=== PATIENT | male | born 1980 | race Caucasian/White ===

== ENCOUNTER 2025-02-24 09:51 | Outpatient (CLI) | payer OTHER, SELFPAY ==
--- OUTSIDE RECORDS SUMMARY | 2025-02-24 11:19 | XMS_ITS | Clinical Summary ---
Author Organization [facility] Address [address] [place] [id number] Care Team Providers Care Bill Adjuster Name Role Phone Christopher Son MD Primary Care Provider Allergies Active Allergy Reactions Criticality Noted Date Comments Methotrexate Swelling Medium 08/08/2023 Pertussis Vaccine,Fluid Anaphylaxis High 08/08/2023 Medications aspirin 81 mg enteric coated tablet Take 1 tablet (81 mg total) by mouth daily 30 tablet 4 Active clopidogreL (PLAVIX) 75 mg tablet Take 1 tablet (75 mg total) by mouth daily 30 tablet 4 Active ezetimibe (ZETIA) 10 mg tablet Take 1 tablet (10 mg total) by mouth daily 30 tablet 4 Active rosuvastatin (CRESTOR) 40 mg tablet Take 1 tablet (40 mg total) by mouth nightly 30 tablet 4 Active albuterol 2.5 mg /3 mL (0.083 %) nebulizer solution Inhale as needed 3 Active cholecalciferol 400 unit capsule Take 1 tablet/capsule (400 Units total) by mouth daily Active nitroglycerin (NITROSTAT) 0.[address] 1 tablet (0.4 mg total) under the tongue every 5 (five) minutes as needed 3 Active risankizumab-rza a 150 mg/mL syringe Inject 150 mg under the skin Active acetaminophen (TYLENOL) 500 mg tablet Take 2 tablets (1,000 mg total) by mouth daily Active carvediloL (COREG) 25 mg tablet Take 1 tablet (25 mg total) by mouth 2 (two) times a day with meals 180 tablet 3 4 Active spironolactone (ALDACTONE) 25 mg tablet Take 1 tablet (25 mg total) by mouth daily 30 tablet 11 4 02/26/20 25 Active isosorbide mononitrate ER (IMDUR) 30 mg 24 hr tablet Take 1 tablet (30 mg total) by mouth daily Take 1 30 mg tablet and 1 60 mg tablet daily for a total of 90 mg daily 90 tablet 3 5 Active isosorbide mononitrate ER (IMDUR) 60 mg 24 hr tablet Take 1 tablet (60 mg total) by mouth daily Take 1 30 mg tablet and 1 60 mg tablet daily for a total of 90 mg daily 90 tablet 3 5 Active pregabalin (LYRICA) 150 mg capsule TAKE 1 CAPSULE TWICE DAILY (CHANGE FROM 75MG CAPSULES TO 150MG) 5 Active diclofenac sodium (VOLTAREN) 1 % gel Apply 2 g topically 4 (four) times a day 100 g [address] (CYMBALTA) 30 mg capsule Take 1 capsule (30 mg total) by mouth daily 30 capsule 11 5 08/05/19 26 Active ranolazine ER (RANEXA) 500 mg 12 hr tablet Take 1 tablet (500 mg total) by mouth 2 (two) times a day 180 tablet 3 5 Active doxycycline monohydrate (MONODOX) 100 mg capsule Take 1 capsule (100 mg total) by mouth 2 (two) times a day 5 Active HYDROcodone-acet aminophen (NORCO) 5-325 mg per tablet Take 1 tablet by mouth 2 (two) times a day as needed 5 Active LORazepam (ATIVAN) 0.5 mg tablet Take 1 tablet (0.5 mg total) by mouth daily as needed for anxiety 5 Active tirzepatide, weight loss, (Zepbound) 2.5 mg/0.5 mL pen injectorIndicati ons:Weight Loss Management for Obese Patient (BMI >= 30) Inject 0.5 mL (2.5 mg total) under the skin every 7 days 1 mL 11 5 Active Active Problems Problem Noted Date Diagnosed Date Facet arthritis of lumbar region 08/04/2024 Psoriasis 11/06/2023 Psoriatic arthritis 10/23/2023 HTN (hypertension) 10/12/2023 Assessment & Plan (10/12/2023 10:48 AM CDT): Controlled, we made no changes today. Continue coreg 12.5 mg BID, Norvasc 5 mg daily, and imdur 90 mg daily. Coronary artery disease 08/09/2023 Assessment & Plan (11/20/2023 1:28 PM CDT): Concern for worsening chest pressure due to worsening blood pressure. - Increase Coreg 25mg BID - Continue Amlodipine 5mg daily, Ranexa 500mg BID, Imdur 90mg daily Assessment & Plan (10/12/2023 10:47 AM CDT): CAD Sp CABG x 3 with PCI to LAD x3 and LCX x1 with residual chest pressure. Improved, atypical sounds MSK. SP repeat LHC with patent IVAN to LAD, SVG to PL branch, PDA is patent and stents in the LM into the LAD-September 2023. Continue Ranexa 500 mg BID, continue Norvasc 5 mg daily, DAPT for 6 months- minimum, continue coreg 12.5 mg BID, imdur 90 mg daily and NTG PRN, zetia 10 mg daily and crestor 40 mg daily, along with Zetia 10 mg daily. Continue cardiac rehab, Dr. Horn in [facility] as scheduled. Social work consult. Assessment & Plan (08/20/2023 1:18 PM CDT): CAD Sp CABG x 3 with PCI to LAD x3 and LCX x1 with residual chest pressure. Improved. Increase ranexa to 500 mg BID, continue Norvasc 5 mg daily, DAPT for 6 months-minimum, change metoprolol to 75 mg xl at night for fatigue, imdur 30 mg daily and NTG PRN, zetia 10 mg daily and crestor 40 mg daily. Starting cardiac rehab, Dr. Horn in 3 months. Angina at rest 08/08/2023 Hypercholesterolemia 03/22/2023 Encounters Date Type Department Care Team Description 12/17/2024 Telephone [facility] Medicine Cardiology [address] [facility] 8th [place] [address] [place] [address] Dalia Holm 12/12/2024 Telephone [facility] [address] [facility] 8th [place] [address] [place] [address] Toro Horn MD 11/27/2024 Telephone [facility] Card[facility] [address] [facility] 8th [place] [address] [place] [address] Toro Horn MD Prior Auth (zepbound) 11/26/2024 Results Follow-Up [facility] [address] [place] [address] Toro Horn MD Lipid panel, Hemoglobin A1c, Basic metabolic panel, eGFR 11/25/2024 11:45 AM CDT Lab [facility] [address] [place] [address] Angina at rest; Coronary artery disease involving [place] heart, unspecified vessel or lesion type, unspecified whether angina present; Hypercholesterolemi a 11/25/2024 11:30 AM CDT Lab [facility] [address] [place] [address] Angina at rest; Coronary artery disease involving [place] heart, unspecified vessel or lesion type, unspecified whether angina present; Resistant hypertension; Hypercholesterolemi a 11/25/2024 10:00 AM CDT Office Visit [facility] Cardiology [address] [place] [address] [address] [place] [phone] Toro Horn MD Angina at rest (Primary Dx); Coronary artery disease involving [place] heart, unspecified vessel or lesion type, unspecified whether angina present; Resistant hypertension; Hypercholesterolemi a 11/25/2024 Telephone [facility] [address] [place] [address] [address] [place] [phone] Toro Horn MD from Last 3 Months Surgical History Surgery Date Site/Laterality Comments CORONARY ARTERY BYPASS GRAFT CARDIAC CATHETERIZATION OTHER SURGICAL HISTORY 05/12/2020 Right groin lesion excision CARDIAC STENT PLACEMENT 08/09/2023 PCI to LAD and LCx Medical History Medical History Date Comments Coronary artery disease CABG '23 Hypertension Hyperlipidemia ELIEZER on CPAP Low back pain Family History Medical History Relation Name Comments Diabetes Brother Other Father Other Mother Heart attack Mother's Brother Other Sister Relation Name Status Comments Brother Father Mother Alive Mother's Brother Sister Alive Social History Tobacco Use Types Packs/Day Years Used Date Smoking Tobacco: Former Cigarettes Passive Smoke Exposure: Never Smokeless Tobacco: Never Tobacco Cessation:Counseling Given: Not Answered AUDIT-C Answer Date Recorded Q1: How often do you have a drink containing alc ohol? Monthly or less 08/14/2024 Q2: How many drinks containi ng alcohol do you have on a typical day when you are drinking? 1 or 2 08/14/2024 Q3: How often do you have si x or more drinks on one occasion? Never 08/14/2024 Hunger Vital Sign Answer Date Recorded Within the past 12 months, y ou worried that your food would run out before you got the money to buy more. Never true 08/15/19 25 Within the past 12 months, t he food you bought just didn't last and you didn't have money to get more. Never true 08/14/2024 Personal Safety Answer Date Recorded Have you ever been in or are you currently in a harmful physical or emotional relationship or is someone making you feel afraid or unsafe? Denies 09/26/2023 Sex and Gender Information Value Date Recorded Sex Assigned at Not on file Legal Sex Male 2:34 PM CDT Gender Identity Not on file Sexual Orientation Not on file Obstetrics History Last Filed Vital Signs Vital Sign Reading Time Taken Comments Blood Pressure 108/70 11/25/2024 10:33 AM CDT Pulse 54 11/25/2024 10:33 AM CDT Temperature 36.5 C (97.7 F) 08/04/2024 2:24 PM CDT Respiratory Rate 16 08/04/2024 2:24 PM CDT Oxygen Saturation 96% 11/25/2024 10:33 AM CDT Inhaled Oxygen Concentration - - Weight 142.4 kg (314 lb) 11/25/2024 10:33 AM CDT Height 188 cm (6' 2) 11/25/2024 10:33 AM CDT Body Mass Index 40.32 11/25/2024 10:33 AM CDT Plan of Treatment Health Maintenance Due Date Last Done Comments Depression Screening 1982 Hepatitis C Screening 1982 DTaP/Tdap/Td Vaccine (5 - Tdap) 12/18/1993 12/17/1993, 07/19/1987, 01/20/1983, Additional history exists Varicella Vaccines (1 of 2 - 13+ 2-dose series) 1995 Hepatitis B Screening 2000 Regular Well Visit/Exam 18-64 2000 HPV Vaccines (1 - 3-dose SCDM series) 2009 Influenza Vaccine (#1) 2025 Pneumococcal vaccine <65 Aged Out No longer eligible based on patient's age to complete this topic Goals Goal Patient Goal Type Associated Problems Recent Progress Patient-Stated? Author CCM Chronic Pain Care Plan Chronic Care Management No India Kinsey, RN Note: Problem: Chronic Pain Goals: 1. Minimize further functional decline 2. Maximize quality of life 3. Control pain Strategies: - Activity/exercise program recommendation - Conservative stepwise pain medicine strategy with multi-disciplinary approach - Recommend healthy lifestyle strategies and compensatory methods as needed Medical Devices Implanted Type Area Range Feeder Device Identifier Shelf Expiration Date Model / Serial / Lot Medtronic Card Vasc Surgery 2.50 X 38mm [employer] Rx Coronary Stent [id number] x - [id number] 001 - [id number] Implanted:Qt y: 1 on 08/09/2023 by Naty Rader MD at [facility] Stent N/A: Diagnonal Coronary Artery Medtronic Card Vasc Surgery 03/23/2026 [id number] / [id number] / [id number] Medtronic Card Vasc Surgery 4.0 X 15mm [employer] Rx Coronary Stent [id number] x - [id number] 001 - [id number] Implanted:Qt y: 1 on 08/09/2023 by Naty Rader MD at [facility] Stent N/A: Diagnonal Coronary Artery Medtronic Card Vasc Surgery 01/29/2026 [id number] / [id number] / [id number] Medtronic Card Vasc Surgery 2.25 X 30mm [place] [employer] Rx Coronary Stent [id number] x - [id number] - [id number] Implanted:Qt y: 1 on 08/09/2023 by Naty Rader MD at [facility] Stent N/A: Circumflex Coronary Artery Medtronic Card Vasc Surgery 10/12/2025 [id number] / [id number] / [id number] [employer] Angio-Seal Vip 6fr Closere Device [id number] - [id number] - [id number] Implanted:Qt y: 1 on 09/26/2023 by Toro Horn MD at [facility] Stent Right: Femoral [employer] 06/13/2024 [id number] / [id number] / [id number] [employer] Angio-Seal Vip 6fr Closere Device [id number] - [id number] - [id number] Implanted:Qt y: 1 on 08/09/2023 by Naty Rader MD at [facility] Vascular Closure Device [employer] 03/29/2024 [id number] / [id number] / [id number] Procedures Procedure Name Priority Date/Time Associated Diagnosis Comments HEMOGLOBIN A1C Routine 11/25/2024 12:57 PM CDT Angina at rest Coronary artery disease involving [place] heart, unspecified vessel or lesion type, unspecified whether angina present Hypercholesterolemia EGFR Routine 11/25/2024 12:52 PM CDT Angina at rest Coronary artery disease involving [place] heart, unspecified vessel or lesion type, unspecified whether angina present Hypercholesterolemia CHOLESTEROL, LDL, DIRECT Routine 11/25/2024 12:52 PM CDT Angina at rest Coronary artery disease involving [place] heart, unspecified vessel or lesion type, unspecified whether angina present Resistant hypertension Hypercholesterolemia BASIC METABOLIC PANEL Routine 11/25/2024 12:52 PM CDT Angina at rest Coronary artery disease involving [place] heart, unspecified vessel or lesion type, unspecified whether angina present Hypercholesterolemia LIPID PANEL Routine 11/25/2024 12:52 PM CDT Angina at rest Coronary artery disease involving [place] heart, unspecified vessel or lesion type, unspecified whether angina present Hypercholesterolemia from Last 3 Months Results * Hemoglobin A1c (11/25/2024 12:57 PM CDT) Hgb A1C 5.4 4.0 - 5.6 % Estimated Average Glucose 108 mg/dL [facility] Comment: The ADA recommends reporting an estimated Average Glucose (eAG) with all Hemoglobin A1c results using the equation derived from a study of 507 normal and diabetic adults. Minority populations were underrepresented and children were not included. (Diabetes Care 31:0074-2154, 2008). The eAG is not equivalent to a fasting glucose. Blood 11/25/2024 12:5 7 PM CDT 11/25/2024 12:58 PM CDT Jeffy العراقي MD LAB BLOOD ORDERABLES [facility] al Result [facility] [address] [facility]. Department [place] [address] * eGFR (11/25/2024 12:52 PM CDT) Pathologist [facility] eGFR >90 >=60 mL/min/1. 73 m2 Comment: Interpretive Data Reference Interval Normal >/= 90 mL/min/1.73m2 Mildly decreased* 60 - 89 mL/min/1.73m2 Mildly to moderately decreased 45 - 59 mL/min/1.73m2 Moderately to severely decreased 30 - 44 mL/min/1.73m2 Severely decreased 15 - 29 mL/min/1.73m2 Kidney Failure < 15 mL/min/1.73m2 *Relative to young adult level Estimated glomerular filtration rate is determined by the 2020 CKD-EPI equation recommended by the National Kidney Foundation (A Unifying Approach to GFR Estimation: Recommendations of the NKF-ASK Task Force on Reassessing the Inclusion of Race in Diagnosing Kidney Disease, JASN 2020). The CKD-EPI equation should not be used for patients with unstable renal function and has not been validated in children and those over 70. Current interpretive data was last reviewed 2021. Blood 11/25/2024 12:5 2 PM CDT 11/25/2024 12:52 PM CDT Jeffy العراقي MD LAB BLOOD ORDERABLES Fin al Result Performing Organization Address [facility] Co de Phone Number [facility]STELLE [facility] [address] [facility]. [facility] [employer] [address] * Cholesterol, LDL, direct (11/25/2024 12:52 PM CDT) LDL Cholesterol, Direct 60 <=129 mg/dL Comment: Interpretive Data Ages < or = 19 years Acceptable: <110 mg/dL Borderline high: 110-129 mg/dL High: >or= 130 mg/dL Ages > or = 20 years Optimal: <100 mg/dL Near optimal: 100-129 mg/dL Borderline high: 130-159 mg/dL High: >160 mg/dL Literature References: 1. Expert Panel on Integrated Guidelines for Cardiovascular Health and Risk Reduction in Children and Adolescents. Pediatrics 2011;128:S213 2. NCEP Expert Panel. Circulation 2004;110:227 Current Interpretive Data was last revised on 2018. Testing performed by: [facility], [address] [place]., [address] Blood 11/25/2024 12:5 2 PM CDT 11/25/2024 4:04 PM CDT Toro Horn MD LAB BLOOD ORDERABLES Final Result Performing Organization Address [facility] Co de Phone Number [facility] [address] [facility]. [facility] [place] [address] * (ABNORMAL) Lipid panel (11/25/2024 12:52 PM CDT) Cholesterol 122 30 - 199 mg/dL Comment: Interpretive Data Ages < or = 19 years Acceptable: <170 mg/dL Borderline high: 170-199 mg/dL High: >or= 200 mg/dL Ages > or = 20 years Desirable: <200 mg/dL Borderline high: 200-239 mg/dL High: >or= 240 mg/dL Literature References: 1. Expert Panel on Integrated Guidelines for Cardiovascular Health and Risk Reduction in Children and Adolescents. Pediatrics 2011;128:S213 2. NCEP Expert Panel. Circulation 2004;110:227 Current Interpretive Data was last revised on 2018. Triglycerides 116 <=149 mg/dL [facility]ELLE [facility]ERR[facility] Comment: Interpretive Data Ages < or = 9 years Acceptable: <75 mg/dL Borderline high: 75-99 mg/dL High: >or= 100 mg/dL Ages 10 to 20 years Acceptable: <90 mg/dL Borderline high: 90-129 mg/dL High: >or= 130 mg/dL Ages > or = 20 years Desirable: <150 mg/dL Borderline high: 150-199 mg/dL High: 200-499 mg/dL Very high: >or= 499 mg/dL Literature References: 1. Expert Panel on Integrated Guidelines for Cardiovascular Health and Risk Reduction in Children and Adolescents. Pediatrics 2011;128:S213 2. NCEP Expert Panel. Circulation 2004;110:227 Current Interpretive Data was last revised on 2018. HDL 36(L) >=40 mg/dL [facility]ELLE [facility]ERRERA Comment: Interpretive Data Ages < or = 19 years Acceptable: >45 mg/dL Borderline low: 40-45 mg/dL Low: <40 mg/dL Ages > or = 20 years Desirable: >or= 60 mg/dL Low: <40 mg/dL Literature References: 1. Expert Panel on Integrated Guidelines for Cardiovascular Health and Risk Reduction in Children and Adolescents. Pediatrics 2011;128:S213 2. NCEP Expert Panel. Circulation 2004;110:227 Current Interpretive Data was last revised on 2018. LDL, calculated 65 <=129 mg/dL [facility]STELLE HERRERA Comment: Interpretive Data Ages < or = 19 years Acceptable: <110 mg/dL Borderline high: 110-129 mg/dL High: >or= 130 mg/dL Ages > or = 20 years Optimal: <100 mg/dL Near optimal: 100-129 mg/dL Borderline high: 130-159 mg/dL High: >160 mg/dL Calculated using the Fowler LDL-C estimating equation. This equation was implemented on 2024. Prior to this date LDL-C was estimated using the Friedewald equation. Literature References: 1. Expert Panel on Integrated Guidelines for Cardiovascular Health and Risk Reduction in Children and Adolescents. Pediatrics 2011;128:S213 2. NCEP Expert Panel. Circulation 2004;110:227 3. Malcolm Araujo et al. JERRI Cardiol. 2019September 11;5(5):540-548. doi: 10.1001/jamacardio.2020.0013 Current Interpretive Data was last revised on 2024. Non-HDL Cholesterol 86 mg/dL [facility] Comment: Interpretive Data Ages < or = 19 years Acceptable: <120 mg/dL Borderline high: 120-144 mg/dL High: >145 mg/dL Ages > or = 20 years When triglycerides are >200 mg/dL, Non-HDL cholesterol is a secondary target of therapy with treatment goals that are 30 mg/dL greater than the LDL cholesterol target. Literature References: 1. Expert Panel on Integrated Guidelines for Cardiovascular Health and Risk Reduction in Children and Adolescents. Pediatrics 2011;128:S213 2. NCEP Expert Panel. Circulation 2004;110:227 Current Interpretive Data was last revised on 2018. Chol/HDL ratio 3 [facility] Blood 11/25/2024 12:5 2 PM CDT 11/25/2024 12:52 PM CDT Jeffy العراقي MD LAB BLOOD ORDERABLES Fin al Result [facility] [address] [facility]. Department [place] [address] * (ABNORMAL) Basic metabolic panel (11/25/2024 12:52 PM CDT) Sodium 133(L) 135 - 145 mmol/L Potassium, pl 5.1(H) 3.3 - 4.9 mmol/L [facility] Chloride 100 97 - 110 mmol/L [facility] CO2 22 22 - 32 mmol/L [facility] Anion gap 11 2 - 15 mmol/L [facility] BUN 16 6 - 25 mg/dL [facility] Creatinine 0.90 0.80 - 1.30 mg/dL [facility] Glucose 92 70 - 199 mg/dL [facility] Comment: Interpretive Data Fasting glucose >/= 126 mg/dl is diagnostic for diabetes. Fasting is defined as no caloric intake for at least 8 hours. Fasting glucose between 100 mg/dl to 125 mg/dl is diagnostic of prediabetes. In a patient with classic symptoms of hyperglycemia or hyperglycemic crisis, a random glucose >/= 200 mg/dl is diagnostic for diabetes. In the absence of unequivocal hyperglycemia, results should be confirmed by repeat testing. The classification and Diagnosis of Diabetes Diabetes Care 2021; 46: S19-S40. Current interpretive data was last revised 2022. Calcium 9.4 8.5 - 10.3 mg/dL [facility] Blood 11/25/2024 12:5 2 PM CDT 11/25/2024 12:52 PM CDT Jeffy العراقي MD LAB BLOOD ORDERABLES Fin al Result Performing Organization Address City/State/[facility] Co de Phone Number [facility] [address] [facility] Department [place] [address] from Last 3 Months Insurance [facility] Advance Directives For more information, please contact: [phone] * Full Code (Latest Code Status on File) Date Activated Date Inactivated Comments 09/26/2023 2:40 PM 09/26/2023 9:38 PM * Full Code Date Activated Date Inactivated Comments 08/08/2023 1:17 PM 08/10/2023 3:35 PM Care Teams Bill Adjuster Relationship Specialty Start Date End Date Christopher Son MD [address] [place] [id number] PCP - General Family Medicine 11/25/24
--- NOTE | 2025-02-24 15:00 | NEURO_ITS ---
Impression: # Complains of numbness of hands. ? # Bilateral Carpal Tunnel Syndrome, right more than left. ? # Mild left ulnar neuropathy across the elbow. ? # Normal needle/EMG exam. Nerve Conduction Studies ?Stim Site NR Peak (ms) P-T Amp (?V) Site1 Site2 Delta-P (ms) Dist (cm) Stefano (m/s) Left Median Anti Sensory (2-3nd Digit) Wrist ? 3.6 7.7 Wrist 2-3nd Digit 3.6 14.0 39 Wrist ? 3.5 8.2 Wrist 2-3nd Digit 3.6 14.0 39 Right Median Anti Sensory (2-3nd Digit) Wrist ? 4.0 5.0 Wrist 2-3nd Digit 4.0 14.0 35 Wrist ? 3.2 6.1 Wrist 2-3nd Digit 4.0 14.0 35 Left Radial Anti Sensory (Base 1st Digit) Wrist ? 3.0 7.9 Wrist Base 1st Digit 3.0 0.0 Right Radial Anti Sensory (Base 1st Digit) Wrist ? 2.5 5.8 Wrist Base 1st Digit 2.5 0.0 Left Ulnar Anti Sensory (5th Digit) Wrist ? 2.6 13.5 Wrist 5th Digit 2.6 14.0 54 Right Ulnar Anti Sensory (5th Digit) Wrist ? 3.5 16.2 Wrist 5th Digit 3.5 14.0 40 ?Stim Site NR Onset (ms) O-P Amp (mV) Site1 Site2 Delta-0 (ms) Dist (cm) Stefano (m/s) Left Median Motor (Abd Poll Brev) Wrist ? 4.8 2.1 Elbow Wrist 6.1 31.0 51 Elbow ? 10.9 0.8 Right Median Motor (Abd Poll Brev) Wrist ? 5.2 2.7 Elbow Wrist 5.7 32.0 56 Elbow ? 10.9 2.5 Left Ulnar Motor (Abd Dig Minimi) Wrist ? 2.8 5.1 A Elbow Wrist 6.5 33.0 51 A Elbow ? 9.3 3.9 B Elbow Wrist 4.8 26.0 54 B Elbow ? 7.6 4.1 Right Ulnar Motor (Abd Dig Minimi) Wrist ? 4.0 2.8 A Elbow Wrist 6.4 34.0 53 A Elbow ? 10.4 1.8 B Elbow Wrist 4.8 24.0 50 B Elbow ? 8.8 1.2 F Wave Studies ?NR F-Lat (ms) L-R F-Lat (ms) Left Median (Mrkrs) (Abd Poll Brev) ? 34.21 2.05 Right Median (Mrkrs) (Abd Poll Brev) ? 36.26 2.05 Left Ulnar (Mrkrs) (Abd Dig Min) ? 35.48 0.21 Right Ulnar (Mrkrs) (Abd Dig Min) ? 35.26 0.21 Electromyography ?Side Muscle Nerve Root Ins Act Fibs Amp Dur Recrt Comment Right 1stDorInt Ulnar C8-T1 Nml Nml Nml Nml Nml Right Ext Indicis Radial (Post Int) C7-8 Nml Nml Nml Nml Nml Right Ext Digitorum Radial (Post Int) C7-8 Nml Nml Nml Nml Nml Right BrachioRad Radial C5-6 Nml Nml Nml Nml Nml Right PronatorTeres Median C6-7 Nml Nml Nml Nml Nml Right Abd Poll Brev Median C8-T1 Nml Nml Nml Nml Nml Right ABD Dig Min Ulnar C8-T1 Nml Nml Nml Nml Nml Right FlexPolLong Median (Ant Int) C7-8 Nml Nml Nml Nml Nml Right Abd Poll Long Radial (Post Int) C7-8 Nml Nml Nml Nml Nml Left 1stDorInt Ulnar C8-T1 Nml Nml Nml Nml Nml Left Ext Indicis Radial (Post Int) C7-8 Nml Nml Nml Nml Nml Left Ext Digitorum Radial (Post Int) C7-8 Nml Nml Nml Nml Nml Left BrachioRad Radial C5-6 Nml Nml Nml Nml Nml Left PronatorTeres Median C6-7 Nml Nml Nml Nml Nml Left Abd Poll Brev Median C8-T1 Nml Nml Nml Nml Nml Left ABD Dig Min Ulnar C8-T1 Nml Nml Nml Nml Nml Left FlexPolLong Median (Ant Int) C7-8 Nml Nml Nml Nml Nml Left Abd Poll Long Radial (Post Int) C7-8 Nml Nml Nml Nml Nml
== END 2025-02-24 09:52 | disposition home or self-care (01) ==
LOC: ANHNEURO 09:53
PROVIDERS: PCP Physician Assistant; Visit Provider Physician Assistant
DX: G56.03 Carpal tunnel syndrome, bilateral upper limbs (principal)
CPT/HCPCS: 95886; 95911